=== PATIENT | female | born 1985 | race Caucasian/White ===

== ENCOUNTER 2018-10-26 04:55 | Inpatient (IN) | payer MEDICAID ==
[~2018-10-26] VITALS: Ht 154.9 cm; Wt 83.9 kg
[2018-10-26 05:10] VITALS: Ht 154.9 cm; Wt 83.9 kg
[2018-10-26 05:15] VITALS: BP 116/71; PULSE 85; RESP 18
[2018-10-26] MEDS ORDERED: MISOPROSTOL 200 MCG TAB PR PRN ×2 (05:30→10:30)
[2018-10-26] MEDS ORDERED: METHYLERGONOVINE 0.2 MG INJ IM PRN (05:30)
[2018-10-26] MEDS ORDERED: BUTORPHANOL 2 MG INJ IV PRN (05:30)
[2018-10-26] MEDS ORDERED: LIDOCAINE 1% (MPF) 30 ML INJ INJ PRN (05:30)
[2018-10-26] MEDS ORDERED: OXYTOCIN 30 UNITS/LR 500 ML IV SCH ×3 (05:30→10:07)
[2018-10-26] MEDS ORDERED: AMPICILLIN 2 GM/NS (PMX) 100 ML IV ONE (05:30)
[2018-10-26] MEDS ORDERED: OXYTOCIN 30 UNITS/LR 500 ML IV PRN ×2 (05:30→10:30)
[2018-10-26] MEDS ORDERED: CARBOPROST 250 MCG INJ IM PRN ×2 (05:30→10:30)
[2018-10-26] MEDS ORDERED: IBUPROFEN 600 MG TAB PO PRN (05:30)
[2018-10-26] MEDS: LACTATED RINGER'S 1,000 ML IV SCH ×2 (05:52→13:30)
--- NOTE | 2018-10-26 06:44 | TRIAGE ---
OB Triage Datetime Report Generated by CPN: 10/26/2018 06:44 Datetime: 10/26/2018 06:26 Vaginal Exam Dilatation (cms): 5.0 Effacement (%): 90 Station: -1 Exam By: SYED Cervix, Consistency: Soft Cervix, Position: Midposition Datetime: 10/26/2018 05:56 Assessment Type: Admission Assessment Vaginal Bleeding: None Maternal Assessment Level of Consciousness: Fully Conscious DTR's/Clonus: DTRs 2+; No Clonus Headache: Denies Blurred Vision: No Respiratory Effort: Unlabored; Regular Rhythm; Equal Expansion Breath Sounds, Left: Clear and Equal Breath Sounds, Right: Clear and Equal Nausea/Vomiting: Denies RUQ Epigastric Pain: Denies Lower Extremities Edema: None Upper Extremities Edema: None Facial Edema: None Fall Risk Assessment History of Falling: (0) No Secondary Diagnosis: (0) No Ambulatory Aid: (0) Bedrest/Nurse Assist IV Therapy: (0) No Gait: (0) Normal/Bedrest/Immobile Mental Status: (0) Oriented to Own Ability Fall Score: 0 Fall Risk Score Definition: No Risk: No action required Datetime: 10/26/2018 05:25 Membrane Status: Intact Nitrazine: Negative Datetime: 10/26/2018 05:24 Vaginal Exam Dilatation (cms): 5.0 Effacement (%): 90 Station: -2 Exam By: syed Vaginal Bleeding: None Cervix, Consistency: Soft Cervix, Position: Anterior Datetime: 10/26/2018 05:20 Assessment Type: Triage Maternal Assessment Level of Consciousness: Fully Conscious DTR's/Clonus: DTRs 2+; No Clonus Headache: Denies Blurred Vision: No Respiratory Effort: Unlabored; Regular Rhythm; Equal Expansion Breath Sounds, Left: Clear and Equal Breath Sounds, Right: Clear and Equal Nausea/Vomiting: Denies RUQ Epigastric Pain: Denies Lower Extremities Edema: None Upper Extremities Edema: None Facial Edema: None Fall Risk Assessment History of Falling: (0) No Secondary Diagnosis: (0) No Ambulatory Aid: (0) Bedrest/Nurse Assist IV Therapy: (0) No Gait: (0) Normal/Bedrest/Immobile Mental Status: (0) Oriented to Own Ability Fall Score: 0 Fall Risk Score Definition: No Risk: No action required Datetime: 10/26/2018 05:11 Time of Arrival: 10/26/2018 04:50 EGA: 39.1 Arrived By: Wheelchair Arrived From: Home Chief Complaint: CXS SINCE 0300 SROM SINCE 0400 SPOTTING Movement: Present Contractions: Regular Time Contractions Began: 10/26/2018 03:00 Contractions: Q 2 MIN Rupture of Membranes: Ruptured Vaginal Bleeding: None Vaginal Discharge: Present Recent Sexual Intercouse: Denies Abdominal Trauma: Not Applicable Patient Complaints: Contractions Time Provider Notified: 10/26/2018 05:27 Provider Notified: kit Initial Plan: efm, assessment, ve, call md for orders Datetime: 10/26/2018 05:09 Presentation 'A': Cephalic
[2018-10-26] MEDS ORDERED: AMPICILLIN 1 GM/NS (PMX) 50 ML IV SCH (09:30)
--- NOTE | 2018-10-26 09:52 | PREOPHP ---
DATE OF ADMISSION: 10/26/2018 HISTORY OF PRESENT ILLNESS: Ms. Grace Severino is a 33-year-old 3, para 2, EDC 11/01/2018 in trauterine at 39 weeks and 1 day gestational age, admitted in labor today. She denies any vaginal bleeding or discharge. She reports of contractions since early this morning. Her c are took place at [facility]. PAST MEDICAL HISTORY: None. MEDICATIONS: vitamins. PAST SURGICAL HISTORY: None. OBSTETRICAL HISTORY: x2 vaginal delivery. GYNECOLOGIC HISTORY: 14, regular 3 to 4 days. Denies any sexually transmitted disease. Sexually ac tive with 1 partner. SOCIAL HISTORY: Denies any smoking, drugs or alcohol. FAMILY HISTORY: None. REVIEW OF SYSTEMS: All within normal except history of present illness. PHYSICAL EXAMINATION: HEENT: Within normal. LUNGS: Clear. CARDIOVASCULAR: S1, S2, regular rhythm. ABDOMEN: Gravid, nontender. Negative CVA bilateral. EXTREMITIES: Negative. No calf tenderness. PELVIC: Vaginal exam on admission -2 intact. heart tracing category 1. [place] regular co ntractions. ASSESSMENT: Intrauterine at term in labor. PLAN: Anticipated vaginal delivery. Risks, benefits and alternatives discussed. All questions were answered. Dictated By: ZAHEER HUIZAR MD ME/FERMIN Conf#: [id number] DID#: [id number] CC: ZAHEER HUIZAR MD;*EndCC*
[2018-10-26] MEDS ORDERED: OXYTOCIN 10 UNIT INJ ONE (10:03)
--- NOTE | 2018-10-26 10:07 | LDN ---
Date/Time of Note Date/Time of Note DATE: 10/26/18 TIME: 10:06 Delivery Summary Weeks of Gestation 39 Placenta Delivered: Spontaneously Meconium: Light Episiotomy: No Estimated blood loss: 150 Sponge & Needle done & correct: Yes All needle counts correct: Yes Any foreign bodies felt in the: No Delivery Information Sex Infant Sex: female Apgars 1 Minute: 8 5 Minute: 9 Suctioning Nose & mouth suctioned at saritha: No Delee suction performed: No Umbilical Cord Umbilical cord with: 3 Vessels Cord presentations: no nuchal cord Cord Blood was obtained: Yes ZAHEER HUIZAR MD Oct 26, 2018 10:07
[2018-10-26] MEDS: METHYLERGONOVINE 0.2 MG INJ IM PRN ×2 (10:10→12:09)
[2018-10-26] MEDS ORDERED: ACETAMINOPHEN 325 MG TAB PO PRN (10:30)
[2018-10-26] MEDS ORDERED: LANOLIN HPA 1 PKT TOP PRN (10:30)
[2018-10-26] MEDS ORDERED: OXYCODONE/ASPIRIN (4.88/325) TAB PO PRN (10:30)
[2018-10-26] MEDS ORDERED: WITCH HAZEL/GLYCERIN PAD PR PRN (10:30)
[2018-10-26] MEDS ORDERED: ONDANSETRON 4 MG INJ IV PRN (10:30)
[2018-10-26] MEDS ORDERED: NACL 0.9% 3 ML SYG IV SCH (10:30)
[2018-10-26] MEDS: OXYCODONE/ASPIRIN (4.88/325) TAB PO PRN (11:24)
[2018-10-26] MEDS: IBUPROFEN 600 MG TAB PO SCH ×2 (12:00→17:49)
[2018-10-26 12:30] VITALS: BP 109/56; PULSE 65; RESP 18
[2018-10-26 15:51] VITALS: BP 119/59; PULSE 74; RESP 18
[2018-10-26 19:45] VITALS: BP 94/53; PULSE 67; RESP 18
[2018-10-26] MEDS: SENNA/DOCUSATE NA (8.6MG/50MG) TAB PO SCH (20:59)
[2018-10-27] MEDS: IBUPROFEN 600 MG TAB PO SCH ×4 (00:25→18:46)
--- NOTE | 2018-10-27 03:07 | PD.PPDC ---
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
--- NOTE | 2018-10-27 03:09 | DS ---
Date/Time of Note Date/Time of Note DATE: 10/27/18 TIME: 03:08 Obstetrical Discharge Record Final Diagnosis Final Diagnosis: Term delivered Vaginal Delivery Obstetrical Delivery: Spontaneous Condition on Discharge Physical Assessment Last Vitals: stable afebrile Voiding: Yes Bowel Movement: Yes Breast: Soft, non-tender, Filling Fundus: Firm Abdomen and Incision: soft nt Calf Tenderness: No Patient Condition: Fair ZAHEER HUIZAR MD Oct 27, 2018 03:09
[2018-10-27 03:51] VITALS: BP 94/60; PULSE 64; RESP 18
[2018-10-27 08:00] VITALS: BP 95/55; PULSE 70; RESP 20
[2018-10-27] MEDS: SENNA/DOCUSATE NA (8.6MG/50MG) TAB PO SCH (09:02)
[2018-10-27 16:27] VITALS: BP 97/59; PULSE 62; RESP 16
[2018-10-27 20:10] VITALS: BP 97/56; RESP 18
[2018-10-28] MEDS: IBUPROFEN 600 MG TAB PO SCH ×3 (00:01→11:38)
[2018-10-28] MEDS: SENNA/DOCUSATE NA (8.6MG/50MG) TAB PO SCH ×2 (00:01→09:15)
[2018-10-28 04:20] VITALS: BP 90/51; PULSE 59; RESP 18
[2018-10-28 08:30] VITALS: BP 107/57; PULSE 72; RESP 14
[2018-10-28] MEDS: OXYCODONE/ASPIRIN (4.88/325) TAB PO PRN (09:15)
[2018-10-28 16:37] VITALS: BP 103/54; PULSE 77; RESP 14
== END 2018-10-28 17:10 | disposition home or self-care (01) | DRG 807 ==
LOC: L-D 04:55 → OBT 04:55 → EDBD 05:30 → OBT 05:30 → L-D 05:30 → PP1 12:24
PROVIDERS: ADMIT Obstetrics & Gynecology; ATTEND Obstetrics & Gynecology
PROC: 10E0XZZ Delivery of Products of Conception, External Approach (ICD-10-PCS; principal; 2018-10-26)
DX: O80 Encounter for full-term uncomplicated delivery (principal); Z37.0 Single live birth; Z3A.39 39 weeks gestation of pregnancy
CPT/HCPCS: 76815; 81001; 85014; 85018; 85025; 85610; 85730; 86592; 86850; 86900; 86901; 87340; 99464; G0463; J0290; J2210; J2590; J7120